=== PATIENT | male | born 1940 | race African-American/Black ===

== ENCOUNTER → 2017-10-21 | Outpatient (CLI) | payer MEDICARE ==
--- NOTE | 2017-10-21 22:10 | RADIOLOGY REPORT (SQ) ---
EXAM DESCRIPTION: CT ABD/PELVIS WITH IV ONLY COMPLETED DATE/TIME: 10/21/2017 7:18 pm REASON FOR STUDY: R10.30 LOWER ABDOMINAL PAIN, UNSPECIFIED R10.30 LOWER ABDOMINAL PAIN, UNSPECIFIED COMPARISON: None. TECHNIQUE: CT scan of the abdomen and pelvis performed using helical scanning technique with dynamic intravenous contrast injection. No oral contrast. Images reviewed with lung, soft tissue, and bone windows. Reconstructed coronal and sagittal MPR images reviewed. Delayed images for evaluation of the urinary system also acquired. All images stored on PACS. All CT scanners at this facility use dose modulation, iterative reconstruction, and/or weight based d osing when appropriate to reduce radiation dose to as low as reasonably achievable (ALARA). [facility]: Dose Right [facility]: CareDose [facility]: Dose Right [facility]: Teradose 4D [facility]: MoneyLion CONTRAST TYPE AND DOSE: contrast/concentration: Isovue 350.00 mg/ml; Total Contrast Delivered: 96.0 ml; Total Saline Delivered: 31.2 ml RENAL FUNCTION: Creatinine 1.1 RADIATION DOSE: CT Rad equipment meets quality standard of care and radiation dose reduction techniq ues were employed. CTDIvol: 7.9 - 11.2 mGy. DLP: 1202 mGy-cm.. LIMITATIONS: None. FINDINGS: LOWER CHEST: Mild chronic interstitial changes in the lung bases left more than right. LIVER: Small cyst in the right lobe. SPLEEN: Normal size. No focal lesions. PANCREAS: No masses. No significant calcifications. No adjacent inflammation or peripancreatic fluid collections. Pancreatic duct not dilated. GALLBLADDER: No identified stones by CT criteria. No inflammatory changes to suggest cholecystitis. ADRENAL GLANDS: No significant masses or asymmetry. RIGHT KIDNEY AND URETER: No solid masses. No significant calcifications. No hydronephrosis or hyd roureter. LEFT KIDNEY AND URETER: No solid masses. No significant calcifications. No hydronephrosis or hydr oureter. AORTA AND VESSELS: No aneurysm. No dissection. Renal arteries, SMA, celiac without stenosis. RETROPERITONEUM: No retroperitoneal adenopathy, hemorrhage or masses. BOWEL AND PERITONEAL CAVITY: Unobstructed bowel is seen in bilateral large inguinal hernias. No freeman l masses are seen. APPENDIX: Not identified. PELVIS: No mass. No free fluid. Normal bladder. ABDOMINAL WALL: Very large bilateral inguinal hernias contain unobstructed bowel that extends down in to the scrotum. BONES: Lumbar degenerative disc changes and spondylosis with mild scoliosis. OTHER: No other significant finding. IMPRESSION: 1. Mild chronic lung changes. 2 Small hepatic cyst. 3. Very large bilateral inguinal hernias containing unobstructed bowel. 4. Lumbar degenerative changes. TECHNICAL DOCUMENTATION: JOB ID: [id number] Quality ID # [id number]: Final reports with documentation of one or more dose reduction techniques (e.g., Au tomated exposure control, adjustment of the mA and/or kV according to patient size, use of iterative reconstruction technique) 2010 [employer]- All Rights Reserved Reading location - IP/workstation name: [email or web address]
== END ==
LOC: RAD 18:16
PROVIDERS: ATTEND Internal Medicine
DX: K40.20 Bilateral inguinal hernia, without obstruction or gangrene, not specified as recurrent (principal); R10.30 Lower abdominal pain, unspecified; K76.89 Other specified diseases of liver; M47.896 Other spondylosis, lumbar region
CPT/HCPCS: 74177; 82565

== ENCOUNTER 2018-05-20 17:36 | Inpatient (IN) | payer MEDICARE ==
[2018-05-20] MEDS ORDERED: NORMAL SALINE 1000 ML 1,000 ML IV PRN (18:29)
[2018-05-20 18:39] LABS: ABSOLUTE BASOPHILS # (AUTO) 0.1 10^3/uL (0.0-0.2); ABSOLUTE EOSINOPHILS # (AUTO) 0.3 10^3/uL (0.0-0.6); ABSOLUTE LYMPHOCYTES (AUTO) 1.1 10^3/uL (0.5-4.7); ABSOLUTE MONOCYTES (AUTO) 1.6 10^3/uL (0.1-1.4); ABSOLUTE NEUT (AUTO) 12.2 10^3/uL (1.7-8.2); BASOPHILS % (AUTO) 0.5 % (0-2); HEMATOCRIT 40.1 % (37.9-51.0); HEMOGLOBIN 13.2 g/dL (13.5-17.0); MEAN CORPUSCULAR HEMOGLOBIN 31.8 pg (27.0-33.4); MEAN CORPUSCULAR HGB CONC 32.9 g/dL (32.0-36.0); MEAN CORPUSCULAR VOLUME 97 fl (80-97); MONOCYTES % (AUTO) 10.4 % (3-13); PLATELET COUNT 264 10^3/uL (150-450); RED BLOOD COUNT 4.15 10^6/uL (4.35-5.55); RED CELL DISTRIBUTION WIDTH 12.9 % (11.5-14.0); SEGMENTED NEUTROPHILS % (AUTO) 80.1 % (42-78); TOTAL CELLS COUNTED % (AUTO) 100 %; WHITE BLOOD COUNT 15.2 10^3/uL (4.0-10.5)
[2018-05-20 19:05] LABS: ALANINE AMINOTRANSFERASE 38 U/L (21-72); ALBUMIN 3.7 g/dL (3.5-5.0); ALKALINE PHOSPHATASE 68 U/L (38-126); ANION GAP 12 (5-19); ASPARTATE AMINO TRANSFERASE 40 U/L (17-59); BILIRUBIN,DIRECT 0.4 mg/dL (0.0-0.4); BLOOD UREA NITROGEN 12 mg/dL (7-20); CALCIUM 9.5 mg/dL (8.4-10.2); CARBON DIOXIDE 29 mmol/L (22-30); CHLORIDE 103 mmol/L (98-107); GLUCOSE 114 mg/dL (75-110); POTASSIUM 3.9 mmol/L (3.6-5.0); SODIUM 144.1 mmol/L (137-145); TOTAL PROTEIN 7.4 g/dL (6.3-8.2)
[2018-05-20] MEDS: ACETAMINOPHEN 325 MG TABLET PO PRN (20:35)
--- NOTE | 2018-05-20 20:55 | RADIOLOGY REPORT (SQ) ---
EXAM DESCRIPTION: CT CHEST ANGIOGRAPHY WITHOUT THEN WITH IV CONTRAST COMPLETED DATE/TME: 05/20/2018 00:00 CLINICAL HISTORY: 77 years, Male, R/O PE COMPARISON: None. PROCEDURE: CLINICAL HISTORY: 77 years Male R/O PE COMPARISON: None. TECHNIQUE: Contiguous axial images were obtained through the chest during the infusion of IV contrast. Reformatted images obtained. MIP reformatted images obtained. This exam was performed according to our department optimization program which includes automated exposure control, adjustment of the mA and/or kv according to patient size and/or use of iterative reconstruction technique. FINDINGS: There are numerous pulmonary emboli in branches of the right and left pulmonary arteries involving numerous branches bilaterally. No main pulmonary arterial trunk saddle embolus. There is a small to moderate right pleural effusion. Bilateral atelectasis and consolidation involves the lungs. No pneumothorax is seen. Heart size is mildly enlarged. Size of the aorta is normal. IMPRESSION: Bilateral significant pulmonary emboli are seen. There is a right pleural effusion and bilateral consolidations.
[2018-05-20] MEDS ORDERED: HEPARIN SOD (PORCINE) 1,000 UNIT/ML 10 ML VIAL IV ONE (21:05)
--- NOTE | 2018-05-20 21:18 | PDOC H&P ---
History of Present Illness Admission Date/PCP: 05/20/18 17:36 JAYA ARAIZA MD History of Present Illness: BIENVENIDO GARZA is a 77 year old male, he was recently discharged from [facility] on 05/12/2018, he was admitted on oh 05/06 2018 at [facility] for the management of large bilateral inguinal hernia, she underwent robotic bilateral inguinal hernia repair. He was discharged home on oxygen he was found to have hypoxemia on discharge this was explained on the basis of long restrictive process from increased abdominal contents after surgery. Patient came to the office for post hospital follow-up discharge evaluation, in the office patient was acutely ill looking,he hardly could walk without assistance, the oxygen saturation was in the low 80s despite oxygen via nasal, at 4 L/min, the pulse rate was also elevated, I felt patient needed to be admitted for fu rther evaluation and management. A stat CTA chest was done, it demonstrated numerous pulmonary emboli in branches of the right and left pulmonary arteries involving numerous branches bilaterally Past Surgical History Past Surgical History: Reports: Other - Robotic bilateral inguinal hernia repair Social History Smoking Status: Never Smoker Family History Parental Family History Reviewed: Yes Children Family History Reviewed: Yes Sibling(s) Family History Reviewed.: Yes Medication/Allergy Home Medications: Timolol Maleate [Timoptic 0.5% Oph Soln 5 ml] 1 drop OU BID 05/20/18 Allergies/Adverse Reactions: No Known Allergies Allergy (Unverified 05/20/18 19:57) Review of Systems Constitutional: ABSENT: chills, fever(s), headache(s), weight gain, weight loss Eyes: ABSENT: visual disturbances Ears: ABSENT: hearing changes Cardiovascular: ABSENT: chest pain, dyspnea on exertion, edema, orthropnea, palpitations Respiratory: ABSENT: cough, hemoptysis Gastrointestinal: ABSENT: abdominal pain, constipation, diarrhea, hematemesis, hematochezia, nausea, vomiting Genitourinary: ABSENT: dysuria, hematuria Musculoskeletal: ABSENT: joint swelling Integumentary: ABSENT: rash, wounds Neurological: ABSENT: abnormal gait, abnormal speech, confusion, dizziness, focal weakness, syncope Psychiatric: ABSENT: anxiety, depression, homidical ideation, suicidal ideation Endocrine: ABSENT: cold intolerance, heat intolerance, menstrual abnormalities, polydipsia, polyuria Hematologic/Lymphatic: ABSENT: easy bleeding, easy bruising, lymphadenopathy Physical Exam Vital Signs: Temp Pulse Resp BP Pulse Ox 98.2 F 116 H 16 129/77 H 91 L 05/20/18 17:47 05/20/18 17:47 05/20/18 17:47 05/20/18 17:47 05/20/18 17:47 Intake & Output 05/19/18 05/20/18 05/21/18 06:59 06:59 06:59 Weight 85.6 kg General appearance: PRESENT: mild distress Head exam: PRESENT: atraumatic, normocephalic Eye exam: PRESENT: PERRLA Mouth exam: PRESENT: moist, tongue midline Neck exam: PRESENT: full ROM Respiratory exam: PRESENT: rhonchi Cardiovascular exam: PRESENT: RRR, +S1, +S2 GI/Abdominal exam: PRESENT: normal bowel sounds, soft Rectal exam: PRESENT: deferred Neurological exam: PRESENT: alert, CN II-XII grossly intact Skin exam: PRESENT: dry, intact, warm Results Laboratory Results: 05/20/18 18:15 05/20/18 18:15 05/20/18 05/20/18 18:15 18:15 WBC 15.2 H RBC 4.15 L Hgb 13.2 L Hct 40.1 MCV 97 MCH 31.8 MCHC 32.9 RDW 12.9 Plt Count 264 Seg Neutrophils % 80.1 H Lymphocytes % 7.0 L Monocytes % 10.4 Eosinophils % 2.0 Basophils % 0.5 Absolute Neutrophils 12.2 H Absolute Lymphocytes 1.1 Absolute Monocytes 1.6 H Absolute Eosinophils 0.3 Absolute Basophils 0.1 Sodium 144.1 Potassium 3.9 Chloride 103 Carbon Dioxide 29 Anion Gap 12 BUN 12 Creatinine 0.95 Est GFR ( Amer) > 60 Est GFR (Non-Af Amer) > 60 Glucose 114 H Calcium 9.5 Total Bilirubin 1.0 AST 40 ALT 38 Alkaline Phosphatase 68 Total Protein 7.4 Albumin 3.7 Impressions: Chest/Abdomen CTA 05/20/18 00:00 IMPRESSION: Bilateral significant pulmonary emboli are seen. There is a right pleural effusion and bilateral consolidations. Assessment & Plan - Diagnosis (1) Acute hypoxemic respiratory failure Is this a current diagnosis for this admission?: Yes Plan: Continue oxygen via nasal cannula (2) Bilateral pulmonary embolism Is this a current diagnosis for this admission?: Yes Plan: He has bilateral pulmonary embolism, start heparin infusion
[2018-05-20] MEDS ORDERED: HEPARIN SOD (PORCINE) 1,000 UNIT/ML 10 ML VIAL IV PRN (21:30)
[2018-05-20 21:47] LABS: ABSOLUTE EOSINOPHILS # (AUTO) 0.2 10^3/uL (0.0-0.6); ABSOLUTE MONOCYTES (AUTO) 1.5 10^3/uL (0.1-1.4); ABSOLUTE NEUT (AUTO) 11.9 10^3/uL (1.7-8.2); BASOPHILS % (AUTO) 0.3 % (0-2); EOSINOPHILS % (AUTO) 1.2 % (0-6); HEMATOCRIT 35.8 % (37.9-51.0); HEMOGLOBIN 11.8 g/dL (13.5-17.0); LYMPHOCYTES % (AUTO) 7.1 % (13-45); MEAN CORPUSCULAR HEMOGLOBIN 31.6 pg (27.0-33.4); MEAN CORPUSCULAR HGB CONC 33.1 g/dL (32.0-36.0); MEAN CORPUSCULAR VOLUME 96 fl (80-97); MONOCYTES % (AUTO) 9.9 % (3-13); PLATELET COUNT 243 10^3/uL (150-450); RED BLOOD COUNT 3.74 10^6/uL (4.35-5.55); RED CELL DISTRIBUTION WIDTH 12.6 % (11.5-14.0); SEGMENTED NEUTROPHILS % (AUTO) 81.5 % (42-78); TOTAL CELLS COUNTED % (AUTO) 100 %; WHITE BLOOD COUNT 14.7 10^3/uL (4.0-10.5)
[2018-05-20 22:18] LABS: ARTERIAL BLOOD BASE EXCESS 5.4 mmol/L; ARTERIAL BLOOD H2CO3 1.25 mmol/L (1.05-1.35); ARTERIAL BLOOD HCO3 29.5 mmol/L (20-24); ARTERIAL BLOOD O2 SATURATION 89.1 % (94-98); ARTERIAL BLOOD PCO2 41.5 mmHg (35-45); ARTERIAL BLOOD PH 7.47 (7.35-7.45); ARTERIAL BLOOD PO2 52.4 mmHg (80-100); ARTERIAL BLOOD TOTAL CO2 30.8 mmol/L (23-27)
[2018-05-20 22:20] LABS: ARTERIAL BLOOD FIO2 36%
[2018-05-20] MEDS: TIMOLOL MALEATE 0.5% OPH SOLN 5 ML OU SCH (22:36)
[2018-05-20 23:10] LABS: INTERNATIONAL RATION (INR) 1.31
[2018-05-20 23:11] LABS: PARTIAL THROMBOPLASTIN TIME 36.8 SEC (23.5-35.8)
[2018-05-21 00:28] LABS: D-DIMER > 20.00 ug/mL (0.00-0.50)
[2018-05-21] MEDS: HEPARIN SODIUM,PORCINE/D5W 25,000 UNIT/250 ML RTUINJ IV PRN ×2 (00:35→19:50)
[2018-05-21] MEDS: ACETAMINOPHEN 325 MG TABLET PO PRN (06:51)
[2018-05-21] MEDS: TIMOLOL MALEATE 0.5% OPH SOLN 5 ML OU SCH ×2 (10:10→17:25)
--- NOTE | 2018-05-21 12:20 | RADIOLOGY REPORT (SQ) ---
EXAM DESCRIPTION: VENOUS BILATERAL LOWER COMPLETED DATE/TIME: 05/21/2018 11:36 am REASON FOR STUDY: DVT COMPARISON: None. TECHNIQUE: Dynamic and static ellis scale and color images acquired of both lower extremity venous sy stems. Selected spectral images acquired with additional compression and augmentation maneuvers. Imag es stored on PACS. LIMITATIONS: Patient motion. FINDINGS: RIGHT LEG COMMON FEMORAL AND FEMORAL: Normal phasicity, compression and augmentation. No visualized echogenic m aterial on ellis scale. No defects on color images. POPLITEAL: Normal compression and augmentation. No visualized echogenic material on ellis scale. No de fects on color images. CALF VESSELS: Normal compression and augmentation. No visualized echogenic material on ellis scale. No defects on color image. GSV AND SSV: Normal compression. No visualized echogenic material on ellis scale. No defects on color images. ANY DEEP VENOUS INSUFFICIENCY: Not evaluated. ANY EVIDENCE OF POPLITEAL CYST: No. OTHER: No other significant finding. LEFT LEG COMMON FEMORAL AND FEMORAL: Normal phasicity, compression and augmentation. No visualized echogenic m aterial on ellis scale. No defects on color images. POPLITEAL: Normal compression and augmentation. No visualized echogenic material on ellis scale. No de fects on color images. CALF VESSELS: Occlusive thrombus posterior tibial vein. GSV AND SSV: Normal compression. No visualized echogenic material on ellis scale. No defects on color images. ANY DEEP VENOUS INSUFFICIENCY: Not evaluated. ANY EVIDENCE POPLITEAL CYST: No. OTHER: No other significant finding. IMPRESSION: Acute thrombosis left posterior tibial vein. TECHNICAL DOCUMENTATION: JOB ID: [id number] [employer]- All Rights Reserved Reading location - IP/workstation name: [email or web address]
--- NOTE | 2018-05-21 13:53 | PDOC PROGRESS REPORT ---
Subjective Progress Note for:: 05/21/18 Subjective:: Patient was admitted yesterday for the management of acute provocative severe bilateral pulmonary emboli with associated acute hypoxic respiratory failure. The venous Doppler of the lower segment was done, it demonstrated acute thrombosis of the left posterior tibial vein. Patient is requiring oxygen via a nonrebreather face mask Reason For Visit: HYPOXEMIA, SHORTNESS OF BREATH Physical Exam Vital Signs: Temp Pulse Resp BP Pulse Ox 97.4 F 98 17 136/68 H 90 L 05/21/18 08:12 05/21/18 08:12 05/21/18 08:12 05/21/18 08:12 05/21/18 12:36 Intake & Output 05/20/18 05/21/18 05/22/18 06:59 06:59 07:59 Intake Total 100 1109 Balance 100 1109 Weight 85.6 kg General appearance: PRESENT: mild distress Head exam: PRESENT: atraumatic, normocephalic Eye exam: PRESENT: conjunctiva pink, EOMI, PERRLA Ear exam: PRESENT: normal external ear exam Mouth exam: PRESENT: moist, tongue midline Neck exam: PRESENT: full ROM Respiratory exam: PRESENT: rhonchi Cardiovascular exam: PRESENT: RRR, +S1, +S2 Vascular exam: PRESENT: normal capillary refill GI/Abdominal exam: PRESENT: soft Rectal exam: PRESENT: deferred Neurological exam: PRESENT: alert, CN II-XII grossly intact Psychiatric exam: PRESENT: appropriate affect, normal mood Skin exam: PRESENT: dry, intact, warm Results Laboratory Results: 05/20/18 21:30 05/20/18 18:15 05/20/18 05/20/18 05/20/18 18:15 18:15 21:30 WBC 15.2 H 14.7 H RBC 4.15 L 3.74 L Hgb 13.2 L 11.8 L Hct 40.1 35.8 L MCV 97 96 MCH 31.8 31.6 MCHC 32.9 33.1 RDW 12.9 12.6 Plt Count 264 243 Seg Neutrophils % 80.1 H 81.5 H Lymphocytes % 7.0 L 7.1 L Monocytes % 10.4 9.9 Eosinophils % 2.0 1.2 Basophils % 0.5 0.3 Absolute Neutrophils 12.2 H 11.9 H Absolute Lymphocytes 1.1 1.0 Absolute Monocytes 1.6 H 1.5 H Absolute Eosinophils 0.3 0.2 Absolute Basophils 0.1 0.0 Carbonic Acid HCO3/H2CO3 Ratio ABG pH ABG pCO2 ABG pO2 ABG HCO3 ABG O2 Saturation ABG Base Excess FiO2 Sodium 144.1 Potassium 3.9 Chloride 103 Carbon Dioxide 29 Anion Gap 12 BUN 12 Creatinine 0.95 Est GFR ( Amer) > 60 Est GFR (Non-Af Amer) > 60 Glucose 114 H Calcium 9.5 Total Bilirubin 1.0 AST 40 ALT 38 Alkaline Phosphatase 68 Total Protein 7.4 Albumin 3.7 05/20/18 21:57 WBC RBC Hgb Hct MCV MCH MCHC RDW Plt Count Seg Neutrophils % Lymphocytes % Monocytes % Eosinophils % Basophils % Absolute Neutrophils Absolute Lymphocytes Absolute Monocytes Absolute Eosinophils Absolute Basophils Carbonic Acid 1.25 HCO3/H2CO3 Ratio 23:1 ABG pH 7.47 H ABG pCO2 41.5 ABG pO2 52.4 L ABG HCO3 29.5 H ABG O2 Saturation 89.1 L ABG Base Excess 5.4 FiO2 36% Sodium Potassium Chloride Carbon Dioxide Anion Gap BUN Creatinine Est GFR ( Amer) Est GFR (Non-Af Amer) Glucose Calcium Total Bilirubin AST ALT Alkaline Phosphatase Total Protein Albumin Impressions: Chest/Abdomen CTA 05/20/18 00:00 IMPRESSION: Bilateral significant pulmonary emboli are seen. There is a right pleural effusion and bilateral consolidations. Venous Doppler Study 05/21/18 00:00 IMPRESSION: Acute thrombosis left posterior tibial vein. Assessment & Plan - Diagnosis (1) Acute hypoxemic respiratory failure Is this a current diagnosis for this admission?: Yes Plan: Patient is requiring oxygen via a nonrebreather facemask, to maintain oxygen saturation above 90 (2) Bilateral pulmonary embolism Is this a current diagnosis for this admission?: Yes Plan: He has very heavy burden of clots in both pulmonary vasculature, patient will be treated with IV heparin for 5 days and then transition to p.o. Eliquis for 3-6 months, this is a provocative DVT/PE secondary to recent surgery that was done [facility] (3) Acute deep vein thrombosis of left tibial vein Is this a current diagnosis for this admission?: Yes
[2018-05-21] MEDS: NORMAL SALINE 1000 ML 1,000 ML IV PRN (17:25)
[2018-05-22 09:03] LABS: APPEARANCE,URINE SLIGHTLY-CLOUDY; BILIRUBIN,URINE NEGATIVE (NEGATIVE); COLOR,URINE YELLOW; GLUCOSE, URINE NEGATIVE (NEGATIVE); KETONES,URINE NEGATIVE (NEGATIVE); LEUKOCYTE ESTERASE,URINE NEGATIVE (NEGATIVE); NITRITE,URINE NEGATIVE (NEGATIVE); PROTEIN,URINE NEGATIVE (NEGATIVE); URINE SPECIFIC GRAVITY 1.016
[2018-05-22] MEDS: TIMOLOL MALEATE 0.5% OPH SOLN 5 ML OU SCH ×2 (09:56→19:42)
--- NOTE | 2018-05-22 12:12 | PDOC PROGRESS REPORT ---
Subjective Progress Note for:: 05/22/18 Subjective:: Patient was seen by the bedside, he still requires high volume oxygen via nonrebreather facemask to maintain oxygen saturation above 90. He was admitted for the management of severe bilateral pulmonary embolism with associated DVT of the left tibial vein Reason For Visit: HYPOXEMIA, SHORTNESS OF BREATH Physical Exam Vital Signs: Temp Pulse Resp BP Pulse Ox 97.3 F 95 17 144/62 H 90 L 05/22/18 08:23 05/22/18 08:23 05/22/18 08:23 05/22/18 08:23 05/22/18 08:23 Intake & Output 05/21/18 05/22/18 05/23/18 05:59 06:59 06:59 Intake Total 143 Balance 143 Weight General appearance: PRESENT: no acute distress Head exam: PRESENT: atraumatic, normocephalic Eye exam: PRESENT: PERRLA Mouth exam: PRESENT: moist, tongue midline Neck exam: PRESENT: full ROM Cardiovascular exam: PRESENT: RRR, +S1, +S2 Vascular exam: PRESENT: normal capillary refill GI/Abdominal exam: PRESENT: normal bowel sounds, soft Rectal exam: PRESENT: deferred Neurological exam: PRESENT: alert, awake, oriented to person, oriented to place, oriented to time, oriented to situation, CN II-XII grossly intact Psychiatric exam: PRESENT: appropriate affect, normal mood Skin exam: PRESENT: dry, intact, warm Results Laboratory Results: 05/20/18 21:30 05/20/18 18:15 05/21/18 05/22/18 14:39 08:20 Urine Color YELLOW Urine Appearance SLIGHTLY-CLOUDY Urine pH 7.0 Ur Specific [place] 1.016 Urine Protein NEGATIVE Urine Glucose (UA) NEGATIVE Urine Ketones NEGATIVE Urine Blood NEGATIVE Urine Nitrite NEGATIVE Ur Leukocyte Esterase NEGATIVE Urine WBC (Auto) 1 Urine RBC (Auto) 1 Stool Occult Blood NEGATIVE Impressions: Chest/Abdomen CTA 05/20/18 00:00 IMPRESSION: Bilateral significant pulmonary emboli are seen. There is a right pleural effusion and bilateral consolidations. Venous Doppler Study 05/21/18 00:00 IMPRESSION: Acute thrombosis left posterior tibial vein. Assessment & Plan - Diagnosis (1) Acute hypoxemic respiratory failure Is this a current diagnosis for this admission?: Yes Plan: Patient continues to require high volume oxygen via nonrebreather facemask, hopefully will prevent mechanical ventilation (2) Bilateral pulmonary embolism Is this a current diagnosis for this admission?: Yes Plan: Continue present line of treatment with IV heparin (3) Acute deep vein thrombosis of left tibial vein Is this a current diagnosis for this admission?: Yes
[2018-05-22 13:13] LABS: ABSOLUTE BASOPHILS # (AUTO) 0.1 10^3/uL (0.0-0.2); ABSOLUTE EOSINOPHILS # (AUTO) 0.3 10^3/uL (0.0-0.6); ABSOLUTE LYMPHOCYTES (AUTO) 1.2 10^3/uL (0.5-4.7); ABSOLUTE MONOCYTES (AUTO) 1.1 10^3/uL (0.1-1.4); ABSOLUTE NEUT (AUTO) 7.9 10^3/uL (1.7-8.2); BASOPHILS % (AUTO) 0.6 % (0-2); HEMATOCRIT 35.9 % (37.9-51.0); LYMPHOCYTES % (AUTO) 11.4 % (13-45); MEAN CORPUSCULAR HEMOGLOBIN 31.6 pg (27.0-33.4); MEAN CORPUSCULAR HGB CONC 33.4 g/dL (32.0-36.0); MEAN CORPUSCULAR VOLUME 95 fl (80-97); MONOCYTES % (AUTO) 10.5 % (3-13); PLATELET COUNT 248 10^3/uL (150-450); RED CELL DISTRIBUTION WIDTH 12.7 % (11.5-14.0); SEGMENTED NEUTROPHILS % (AUTO) 74.5 % (42-78); TOTAL CELLS COUNTED % (AUTO) 100 %; WHITE BLOOD COUNT 10.6 10^3/uL (4.0-10.5)
[2018-05-22 13:27] LABS: ALANINE AMINOTRANSFERASE 28 U/L (21-72); ALBUMIN 3.1 g/dL (3.5-5.0); ALKALINE PHOSPHATASE 60 U/L (38-126); ANION GAP 6 (5-19); ASPARTATE AMINO TRANSFERASE 40 U/L (17-59); BILIRUBIN,DIRECT 0.3 mg/dL (0.0-0.4); BILIRUBIN,TOTAL 0.8 mg/dL (0.2-1.3); BLOOD UREA NITROGEN 8 mg/dL (7-20); CALCIUM 8.7 mg/dL (8.4-10.2); CARBON DIOXIDE 31 mmol/L (22-30); CHLORIDE 104 mmol/L (98-107); GLUCOSE 108 mg/dL (75-110); POTASSIUM 3.4 mmol/L (3.6-5.0); SODIUM 141.1 mmol/L (137-145); TOTAL PROTEIN 6.8 g/dL (6.3-8.2)
--- NOTE | 2018-05-22 13:28 | RADIOLOGY REPORT (SQ) ---
EXAM DESCRIPTION: CHEST SINGLE VIEW COMPLETED DATE/TIME: 05/22/2018 12:23 pm REASON FOR STUDY: acute hypoxemic respiratory failure COMPARISON: None. EXAM PARAMETERS: NUMBER OF VIEWS: One view. TECHNIQUE: Single frontal radiographic view of the chest acquired. RADIATION DOSE: NA LIMITATIONS: None. FINDINGS: LUNGS AND PLEURA: Bibasilar infiltrates and effusions. MEDIASTINUM AND HILAR STRUCTURES: No masses. Contour normal. HEART AND VASCULAR STRUCTURES: Cardiomegaly. The pulmonary vasculature is normal. Aortic atheroscle rosis seen.BONES: No acute findings. HARDWARE: None in the chest. OTHER: Chest leads in place. IMPRESSION: Bibasilar infiltrates and effusions. Cardiomegaly. TECHNICAL DOCUMENTATION: JOB ID: [id number] 2010 [employer]- All Rights Reserved Reading location - IP/workstation name: [email or web address]
[2018-05-22] MEDS: POTASSIUM CHLORIDE 20 MEQ/15 ML UDCUP PO SCH (16:07)
[2018-05-22] MEDS: HEPARIN SODIUM,PORCINE/D5W 25,000 UNIT/250 ML RTUINJ IV PRN (19:57)
[2018-05-23] MEDS: NORMAL SALINE 1000 ML 1,000 ML IV PRN (03:21)
[2018-05-23] MEDS: POTASSIUM CHLORIDE 20 MEQ/15 ML UDCUP PO SCH (09:02)
[2018-05-23] MEDS: TIMOLOL MALEATE 0.5% OPH SOLN 5 ML OU SCH ×2 (09:03→17:50)
[2018-05-23 11:25] LABS: ABSOLUTE BASOPHILS # (AUTO) 0.1 10^3/uL (0.0-0.2); ABSOLUTE EOSINOPHILS # (AUTO) 0.1 10^3/uL (0.0-0.6); ABSOLUTE LYMPHOCYTES (AUTO) 0.9 10^3/uL (0.5-4.7); ABSOLUTE NEUT (AUTO) 7.6 10^3/uL (1.7-8.2); BASOPHILS % (AUTO) 0.6 % (0-2); EOSINOPHILS % (AUTO) 1.2 % (0-6); HEMATOCRIT 40.9 % (37.9-51.0); HEMOGLOBIN 13.7 g/dL (13.5-17.0); LYMPHOCYTES % (AUTO) 9.7 % (13-45); MEAN CORPUSCULAR HGB CONC 33.6 g/dL (32.0-36.0); MEAN CORPUSCULAR VOLUME 95 fl (80-97); MONOCYTES % (AUTO) 10.1 % (3-13); PLATELET COUNT 257 10^3/uL (150-450); RED BLOOD COUNT 4.29 10^6/uL (4.35-5.55); RED CELL DISTRIBUTION WIDTH 12.8 % (11.5-14.0); SEGMENTED NEUTROPHILS % (AUTO) 78.4 % (42-78); TOTAL CELLS COUNTED % (AUTO) 100 %; WHITE BLOOD COUNT 9.7 10^3/uL (4.0-10.5)
[2018-05-23 11:40] LABS: ALANINE AMINOTRANSFERASE 16 U/L (21-72); ALBUMIN 3.2 g/dL (3.5-5.0); ALKALINE PHOSPHATASE 56 U/L (38-126); ANION GAP 9 (5-19); ASPARTATE AMINO TRANSFERASE 32 U/L (17-59); BILIRUBIN,DIRECT 0.4 mg/dL (0.0-0.4); BILIRUBIN,TOTAL 0.9 mg/dL (0.2-1.3); BLOOD UREA NITROGEN 8 mg/dL (7-20); CALCIUM 9.2 mg/dL (8.4-10.2); CARBON DIOXIDE 27 mmol/L (22-30); CHLORIDE 104 mmol/L (98-107); GLUCOSE 115 mg/dL (75-110)
[2018-05-23 11:48] LABS: POTASSIUM 4.6 mmol/L (3.6-5.0)
[2018-05-23] MEDS: HEPARIN SODIUM,PORCINE/D5W 25,000 UNIT/250 ML RTUINJ IV PRN (17:23)
--- NOTE | 2018-05-23 21:18 | PDOC PROGRESS REPORT ---
Subjective Progress Note for:: 05/23/18 Subjective:: Patient was seen by the bedside today, the face color is returning, patient seems to be improving and getting better, family also acknowledges this Reason For Visit: HYPOXEMIA, SHORTNESS OF BREATH Physical Exam Vital Signs: Temp Pulse Resp BP Pulse Ox 98.7 F 105 H 24 H 128/66 H 95 05/23/18 15:32 05/23/18 15:32 05/23/18 17:46 05/23/18 15:32 05/23/18 15:32 Intake & Output 05/22/18 05/23/18 05/24/18 06:59 06:59 06:59 Intake Total 2103 991 Output Total 350 Balance 1753 991 Weight 87.4 kg General appearance: PRESENT: no acute distress Eye exam: PRESENT: PERRLA Respiratory exam: PRESENT: rhonchi Cardiovascular exam: PRESENT: +S1, +S2 GI/Abdominal exam: PRESENT: soft Neurological exam: PRESENT: alert Results Laboratory Results: 05/23/18 10:48 05/23/18 10:48 05/23/18 05/23/18 05/23/18 10:30 10:48 10:48 WBC 9.7 RBC 4.29 L Hgb 13.7 Hct 40.9 MCV 95 MCH 32.0 MCHC 33.6 RDW 12.8 Plt Count 257 Seg Neutrophils % 78.4 H Lymphocytes % 9.7 L Monocytes % 10.1 Eosinophils % 1.2 Basophils % 0.6 Absolute Neutrophils 7.6 Absolute Lymphocytes 0.9 Absolute Monocytes 1.0 Absolute Eosinophils 0.1 Absolute Basophils 0.1 Sodium 140.0 Potassium 4.6 D Chloride 104 Carbon Dioxide 27 Anion Gap 9 BUN 8 Creatinine 0.79 Est GFR ( Amer) > 60 Est GFR (Non-Af Amer) > 60 Glucose 115 H Calcium 9.2 Total Bilirubin 0.9 AST 32 ALT 16 L Alkaline Phosphatase 56 Total Protein 7.0 Albumin 3.2 L Stool Occult Blood NEGATIVE Impressions: Chest/Abdomen CTA 05/20/18 00:00 IMPRESSION: Bilateral significant pulmonary emboli are seen. There is a right pleural effusion and bilateral consolidations. Venous Doppler Study 05/21/18 00:00 IMPRESSION: Acute thrombosis left posterior tibial vein. Chest X-Ray 05/22/18 00:00 IMPRESSION: Bibasilar infiltrates and effusions. Cardiomegaly. Assessment & Plan - Diagnosis (1) Acute hypoxemic respiratory failure Is this a current diagnosis for this admission?: Yes Plan: Patient is now requiring oxygen via nasal cannula (2) Bilateral pulmonary embolism Is this a current diagnosis for this admission?: Yes Plan: Continue intravenous heparin (3) Acute deep vein thrombosis of left tibial vein Is this a current diagnosis for this admission?: Yes
[2018-05-24 06:54] LABS: ABSOLUTE BASOPHILS # (AUTO) 0.1 10^3/uL (0.0-0.2); ABSOLUTE EOSINOPHILS # (AUTO) 0.1 10^3/uL (0.0-0.6); ABSOLUTE LYMPHOCYTES (AUTO) 1.3 10^3/uL (0.5-4.7); ABSOLUTE NEUT (AUTO) 6.5 10^3/uL (1.7-8.2); BASOPHILS % (AUTO) 1.1 % (0-2); EOSINOPHILS % (AUTO) 1.4 % (0-6); HEMATOCRIT 36.1 % (37.9-51.0); HEMOGLOBIN 12.1 g/dL (13.5-17.0); LYMPHOCYTES % (AUTO) 14.1 % (13-45); MEAN CORPUSCULAR HEMOGLOBIN 31.7 pg (27.0-33.4); MEAN CORPUSCULAR HGB CONC 33.3 g/dL (32.0-36.0); MEAN CORPUSCULAR VOLUME 95 fl (80-97); MONOCYTES % (AUTO) 10.7 % (3-13); PLATELET COUNT 259 10^3/uL (150-450); RED CELL DISTRIBUTION WIDTH 12.9 % (11.5-14.0); SEGMENTED NEUTROPHILS % (AUTO) 72.7 % (42-78); TOTAL CELLS COUNTED % (AUTO) 100 %
[2018-05-24 07:21] LABS: ALANINE AMINOTRANSFERASE 37 U/L (21-72); ALBUMIN 2.9 g/dL (3.5-5.0); ALKALINE PHOSPHATASE 58 U/L (38-126); ANION GAP 6 (5-19); ASPARTATE AMINO TRANSFERASE 35 U/L (17-59); BILIRUBIN,DIRECT 0.2 mg/dL (0.0-0.4); BILIRUBIN,TOTAL 0.8 mg/dL (0.2-1.3); BLOOD UREA NITROGEN 9 mg/dL (7-20); CARBON DIOXIDE 30 mmol/L (22-30); CHLORIDE 104 mmol/L (98-107); GLUCOSE 92 mg/dL (75-110); POTASSIUM 4.3 mmol/L (3.6-5.0); SODIUM 140.1 mmol/L (137-145); TOTAL PROTEIN 6.6 g/dL (6.3-8.2)
[2018-05-24] MEDS: POTASSIUM CHLORIDE 20 MEQ/15 ML UDCUP PO SCH (09:39)
[2018-05-24] MEDS: TIMOLOL MALEATE 0.5% OPH SOLN 5 ML OU SCH ×2 (09:40→17:15)
[2018-05-24] MEDS: NORMAL SALINE 1000 ML 1,000 ML IV PRN (11:19)
[2018-05-24] MEDS: HEPARIN SODIUM,PORCINE/D5W 25,000 UNIT/250 ML RTUINJ IV PRN (15:23)
--- NOTE | 2018-05-24 19:39 | PDOC PROGRESS REPORT ---
Subjective Progress Note for:: 05/24/18 Subjective:: Patient was seen today by the bedside, he was seen by physical therapy today he was able to walk some meters Reason For Visit: HYPOXEMIA, SHORTNESS OF BREATH Physical Exam Vital Signs: Temp Pulse Resp BP Pulse Ox 97.5 F 89 24 H 125/72 93 05/24/18 15:24 05/24/18 19:00 05/24/18 15:24 05/24/18 15:24 05/24/18 15:24 Intake & Output 05/23/18 05/24/18 05/25/18 06:59 06:59 06:59 Intake Total 2103 991 1440 Output Total 350 Balance 1334 431 8442 Weight 87.4 kg 86.9 kg General appearance: PRESENT: no acute distress Eye exam: PRESENT: PERRLA Respiratory exam: PRESENT: clear to auscultation chaitanya Cardiovascular exam: PRESENT: +S1, +S2 GI/Abdominal exam: PRESENT: soft Neurological exam: PRESENT: alert Results Laboratory Results: 05/24/18 06:18 05/24/18 06:18 05/24/18 05/24/18 06:18 06:18 WBC 9.0 RBC 3.80 L Hgb 12.1 L Hct 36.1 L MCV 95 MCH 31.7 MCHC 33.3 RDW 12.9 Plt Count 259 Seg Neutrophils % 72.7 Lymphocytes % 14.1 Monocytes % 10.7 Eosinophils % 1.4 Basophils % 1.1 Absolute Neutrophils 6.5 Absolute Lymphocytes 1.3 Absolute Monocytes 1.0 Absolute Eosinophils 0.1 Absolute Basophils 0.1 Sodium 140.1 Potassium 4.3 Chloride 104 Carbon Dioxide 30 Anion Gap 6 BUN 9 Creatinine 0.81 Est GFR ( Amer) > 60 Est GFR (Non-Af Amer) > 60 Glucose 92 Calcium 9.0 Total Bilirubin 0.8 AST 35 ALT 37 Alkaline Phosphatase 58 Total Protein 6.6 Albumin 2.9 L Impressions: Chest/Abdomen CTA 05/20/18 00:00 IMPRESSION: Bilateral significant pulmonary emboli are seen. There is a right pleural effusion and bilateral consolidations. Venous Doppler Study 05/21/18 00:00 IMPRESSION: Acute thrombosis left posterior tibial vein. Chest X-Ray 05/22/18 00:00 IMPRESSION: Bibasilar infiltrates and effusions. Cardiomegaly. Assessment & Plan - Diagnosis (1) Acute hypoxemic respiratory failure Is this a current diagnosis for this admission?: Yes Plan: Patient continue to require oxygen via nasal cannula (2) Bilateral pulmonary embolism Is this a current diagnosis for this admission?: Yes Plan: Continue intravenous heparin (3) Acute deep vein thrombosis of left tibial vein Is this a current diagnosis for this admission?: Yes
[2018-05-25 08:50] LABS: HEMATOCRIT 35.3 % (37.9-51.0); HEMOGLOBIN 11.7 g/dL (13.5-17.0); MEAN CORPUSCULAR HEMOGLOBIN 31.5 pg (27.0-33.4); MEAN CORPUSCULAR HGB CONC 33.2 g/dL (32.0-36.0); MEAN CORPUSCULAR VOLUME 95 fl (80-97); PLATELET COUNT 263 10^3/uL (150-450); RED BLOOD COUNT 3.73 10^6/uL (4.35-5.55); RED CELL DISTRIBUTION WIDTH 12.7 % (11.5-14.0); WHITE BLOOD COUNT 6.8 10^3/uL (4.0-10.5)
[2018-05-25 08:55] LABS: ALANINE AMINOTRANSFERASE 40 U/L (21-72); ALBUMIN 2.8 g/dL (3.5-5.0); ALKALINE PHOSPHATASE 52 U/L (38-126); ASPARTATE AMINO TRANSFERASE 36 U/L (17-59); BILIRUBIN,DIRECT 0.2 mg/dL (0.0-0.4); BILIRUBIN,TOTAL 0.7 mg/dL (0.2-1.3); BLOOD UREA NITROGEN 9 mg/dL (7-20); CARBON DIOXIDE 33 mmol/L (22-30); CHLORIDE 102 mmol/L (98-107); GLUCOSE 96 mg/dL (75-110); POTASSIUM 3.9 mmol/L (3.6-5.0); TOTAL PROTEIN 6.4 g/dL (6.3-8.2)
[2018-05-25 09:00] LABS: ANION GAP 5 (5-19); SODIUM 139.5 mmol/L (137-145)
[2018-05-25 09:13] LABS: ABSOLUTE LYMPHOCYTES# (MANUAL) 0.7 10^3/uL (0.5-4.7); ABSOLUTE MONOCYTES # (MANUAL) 0.7 10^3/uL (0.1-1.4); ABSOLUTE NEUTROPHILS# (MANUAL) 5.3 10^3/uL (1.7-8.2); BASOPHILS % (MANUAL) 0 % (0-2); EOSINOPHILS % (MANUAL) 2 % (0-6); LYMPHOCYTES % (MANUAL) 10 % (13-45); MONOCYTES % (MANUAL) 10 % (3-13); PLATELET COMMENT ADEQUATE; POIKILOCYTOSIS SLIGHT; POLYCHROMASIA SLIGHT; SEGMENTED NEUTROPHILS % (MAN) 78 % (42-78); TEAR DROP CELLS SLIGHT; TOTAL CELLS COUNTED 100; TOXIC VACUOLATION PRESENT
[2018-05-25] MEDS: TIMOLOL MALEATE 0.5% OPH SOLN 5 ML OU SCH ×2 (09:37→17:42)
[2018-05-25] MEDS: POTASSIUM CHLORIDE 20 MEQ/15 ML UDCUP PO SCH (09:37)
--- NOTE | 2018-05-25 17:21 | PDOC PROGRESS REPORT ---
Subjective Progress Note for:: 05/25/18 Subjective:: Patient was seen by the bedside, he has no new complaints Reason For Visit: HYPOXEMIA, SHORTNESS OF BREATH Physical Exam Vital Signs: Temp Pulse Resp BP Pulse Ox 98.4 F 96 17 117/57 L 95 05/25/18 15:52 05/25/18 15:52 05/25/18 15:52 05/25/18 15:52 05/25/18 15:52 Intake & Output 05/24/18 05/25/18 05/26/18 06:59 06:59 06:59 Intake Total 991 1440 591 Balance 991 1440 591 Weight 86.9 kg 86.2 kg General appearance: PRESENT: no acute distress Eye exam: PRESENT: PERRLA Respiratory exam: PRESENT: clear to auscultation chaitanya Cardiovascular exam: PRESENT: +S1, +S2 GI/Abdominal exam: PRESENT: soft Neurological exam: PRESENT: alert Results Laboratory Results: 05/25/18 06:01 05/25/18 06:01 05/25/18 05/25/18 06:01 06:01 WBC 6.8 RBC 3.73 L Hgb 11.7 L Hct 35.3 L MCV 95 MCH 31.5 MCHC 33.2 RDW 12.7 Plt Count 263 Seg Neutrophils % Not Reportable Lymphocytes % Not Reportable Monocytes % Not Reportable Eosinophils % Not Reportable Basophils % Not Reportable Absolute Neutrophils Not Reportable Absolute Lymphocytes Not Reportable Absolute Monocytes Not Reportable Absolute Eosinophils Not Reportable Absolute Basophils Not Reportable Sodium 139.5 Potassium 3.9 Chloride 102 Carbon Dioxide 33 H Anion Gap 5 BUN 9 Creatinine 0.77 Est GFR ( Amer) > 60 Est GFR (Non-Af Amer) > 60 Glucose 96 Calcium 9.0 Total Bilirubin 0.7 AST 36 ALT 40 Alkaline Phosphatase 52 Total Protein 6.4 Albumin 2.8 L Impressions: Chest/Abdomen CTA 05/20/18 00:00 IMPRESSION: Bilateral significant pulmonary emboli are seen. There is a right pleural effusion and bilateral consolidations. Venous Doppler Study 05/21/18 00:00 IMPRESSION: Acute thrombosis left posterior tibial vein. Chest X-Ray 05/22/18 00:00 IMPRESSION: Bibasilar infiltrates and effusions. Cardiomegaly. Assessment & Plan - Diagnosis (1) Acute hypoxemic respiratory failure Is this a current diagnosis for this admission?: Yes Plan: Continue therapy with oxygen (2) Bilateral pulmonary embolism Is this a current diagnosis for this admission?: Yes Plan: The intravenous heparin will be discontinued, this will be transitioned to p.o. Eliquis (3) Acute deep vein thrombosis of left tibial vein Is this a current diagnosis for this admission?: Yes
[2018-05-25] MEDS: APIXABAN 5 MG TABLET PO SCH (21:23)
[2018-05-26 07:15] LABS: ABSOLUTE BASOPHILS # (AUTO) 0.1 10^3/uL (0.0-0.2); ABSOLUTE EOSINOPHILS # (AUTO) 0.2 10^3/uL (0.0-0.6); ABSOLUTE LYMPHOCYTES (AUTO) 0.9 10^3/uL (0.5-4.7); ABSOLUTE MONOCYTES (AUTO) 0.8 10^3/uL (0.1-1.4); BASOPHILS % (AUTO) 0.9 % (0-2); EOSINOPHILS % (AUTO) 2.3 % (0-6); HEMATOCRIT 36.5 % (37.9-51.0); HEMOGLOBIN 12.2 g/dL (13.5-17.0); LYMPHOCYTES % (AUTO) 13.2 % (13-45); MEAN CORPUSCULAR HEMOGLOBIN 31.6 pg (27.0-33.4); MEAN CORPUSCULAR HGB CONC 33.5 g/dL (32.0-36.0); MEAN CORPUSCULAR VOLUME 95 fl (80-97); MONOCYTES % (AUTO) 11.6 % (3-13); PLATELET COUNT 247 10^3/uL (150-450); RED BLOOD COUNT 3.86 10^6/uL (4.35-5.55); RED CELL DISTRIBUTION WIDTH 12.9 % (11.5-14.0); TOTAL CELLS COUNTED % (AUTO) 100 %
[2018-05-26 07:24] LABS: ALANINE AMINOTRANSFERASE 29 U/L (21-72); ALBUMIN 3.4 g/dL (3.5-5.0); ALKALINE PHOSPHATASE 58 U/L (38-126); ANION GAP 5 (5-19); ASPARTATE AMINO TRANSFERASE 35 U/L (17-59); BILIRUBIN,DIRECT 0.4 mg/dL (0.0-0.4); BILIRUBIN,TOTAL 0.8 mg/dL (0.2-1.3); BLOOD UREA NITROGEN 9 mg/dL (7-20); CALCIUM 9.3 mg/dL (8.4-10.2); CARBON DIOXIDE 36 mmol/L (22-30); CHLORIDE 99 mmol/L (98-107); GLUCOSE 92 mg/dL (75-110); POTASSIUM 3.9 mmol/L (3.6-5.0); SODIUM 139.5 mmol/L (137-145); TOTAL PROTEIN 7.3 g/dL (6.3-8.2)
[2018-05-26] MEDS: TIMOLOL MALEATE 0.5% OPH SOLN 5 ML OU SCH ×2 (10:26→17:58)
[2018-05-26] MEDS: APIXABAN 5 MG TABLET PO SCH ×2 (10:26→21:25)
--- NOTE | 2018-05-26 20:58 | PDOC PROGRESS REPORT ---
Subjective Progress Note for:: 05/26/18 Subjective:: Patient was seen by the bedside, he is very deconditioned the plan is to transfer to [facility] for rehabilitation Reason For Visit: HYPOXEMIA, SHORTNESS OF BREATH Physical Exam Vital Signs: Temp Pulse Resp BP Pulse Ox 98.3 F 91 16 118/56 L 100 05/26/18 20:23 05/26/18 20:23 05/26/18 20:23 05/26/18 20:23 05/26/18 20:23 Intake & Output 05/25/18 05/26/18 05/27/18 06:59 06:59 06:59 Intake Total 1440 591 940 Output Total 100 Balance 1440 491 940 Weight 86.2 kg 86.3 kg General appearance: PRESENT: no acute distress Eye exam: PRESENT: PERRLA Respiratory exam: PRESENT: clear to auscultation chaitanya Cardiovascular exam: PRESENT: +S1, +S2 GI/Abdominal exam: PRESENT: soft Results Laboratory Results: 05/26/18 06:27 05/26/18 06:24 05/26/18 05/26/18 06:24 06:27 WBC 7.0 RBC 3.86 L Hgb 12.2 L Hct 36.5 L MCV 95 MCH 31.6 MCHC 33.5 RDW 12.9 Plt Count 247 Seg Neutrophils % 72.0 Lymphocytes % 13.2 Monocytes % 11.6 Eosinophils % 2.3 Basophils % 0.9 Absolute Neutrophils 5.0 Absolute Lymphocytes 0.9 Absolute Monocytes 0.8 Absolute Eosinophils 0.2 Absolute Basophils 0.1 Sodium 139.5 Potassium 3.9 Chloride 99 Carbon Dioxide 36 H Anion Gap 5 BUN 9 Creatinine 0.79 Est GFR ( Amer) > 60 Est GFR (Non-Af Amer) > 60 Glucose 92 Calcium 9.3 Total Bilirubin 0.8 AST 35 ALT 29 Alkaline Phosphatase 58 Total Protein 7.3 Albumin 3.4 L Impressions: Chest/Abdomen CTA 05/20/18 00:00 IMPRESSION: Bilateral significant pulmonary emboli are seen. There is a right pleural effusion and bilateral consolidations. Venous Doppler Study 05/21/18 00:00 IMPRESSION: Acute thrombosis left posterior tibial vein. Chest X-Ray 05/22/18 00:00 IMPRESSION: Bibasilar infiltrates and effusions. Cardiomegaly. Assessment & Plan - Diagnosis (1) Acute hypoxemic respiratory failure Is this a current diagnosis for this admission?: Yes Plan: Continue therapy with oxygen (2) Bilateral pulmonary embolism Is this a current diagnosis for this admission?: Yes Plan: continue PO Eliquis (3) Acute deep vein thrombosis of left tibial vein Is this a current diagnosis for this admission?: Yes
--- NOTE | 2018-05-26 21:04 | PDOC TRANSFER SUMMARY ---
General - Admit/Disc Date/PCP Admission Date/Primary Care Provider: 05/20/18 17:36 JAYA ARAIZA MD Discharge Date: 05/27/18 - Discharge Diagnosis (1) Acute hypoxemic respiratory failure Is this a current diagnosis for this admission?: Yes (2) Bilateral pulmonary embolism Is this a current diagnosis for this admission?: Yes (3) Acute deep vein thrombosis of left tibial vein Is this a current diagnosis for this admission?: Yes - Additional Information Resuscitation Status: Full Code Home Medications: Timolol Maleate [Timoptic 0.5% Oph Soln 5 ml] 1 drop OU BID 05/20/18 Acetaminophen [Tylenol 325 mg Tablet] 650 mg PO Q4HP PRN tablet 05/26/18 Apixaban [Eliquis 5 mg Tablet] 5 mg PO Q12 tablet 05/26/18 History of Present Illness Admission Date/PCP: 05/20/18 17:36 JAYA ARAIZA MD History of Present Illness: BIENVENIDO GARZA is a 77 year old male, he was recently discharged from [facility] on 05/12/2018, he was admitted on [place] 05/06 2018 at [facility] for the management of large bilateral inguinal hernia, she underwent robotic bilateral inguinal hernia repair. He was discharged home on oxygen he was found to have hypoxemia on discharge this was explained on the basis of long restrictive process from increased abdominal contents after surgery. Patient came to the office for post hospital follow-up discharge evaluation, in the office patient was acutely ill looking,he hardly could walk without assistance, the oxygen saturation was in the low 80s despite oxygen via nasal, at 4 L/min, the pulse rate was also elevated, I felt patient needed to be admitted for further evaluation and management. A stat CTA chest was done, it demonstrated numerous pulmonary emboli in branches of the right and left pulmonary arteries involving numerous branches bilaterally Hospital Course Hospital Course: Patient was admitted for the management of acute hypoxic respiratory failure due to diffuse bilateral pulmonary embolism. Because of the severity of the venous thromboembolism he was treated with intravenous systemic coagulation, heparin. A venous Doppler was done that confirmed DVT of the left tibia vein The IV heparin was discontinued yesterday and was transitioned to p.o. Eliquis, he will take Eliquis for 6 months this was a provocative Venous thromboembolism.Patient to be transferred to retirement for short-term rehabilitation because he is extremely deconditioned with poor performance status was seen by physical therapy in the hospital and [facility] and PT was recommended Physical Exam Vital Signs: Temp Pulse Resp BP Pulse Ox 98.3 F 91 16 118/56 L 100 05/26/18 20:23 05/26/18 20:23 05/26/18 20:23 05/26/18 20:23 05/26/18 20:23 Intake & Output 05/25/18 05/26/18 05/27/18 06:59 06:59 06:59 Intake Total 1440 591 940 Output Total 100 Balance 1440 491 940 Weight 86.2 kg 86.3 kg General appearance: PRESENT: no acute distress Eye exam: PRESENT: PERRLA Respiratory exam: PRESENT: clear to auscultation chaitanya Cardiovascular exam: PRESENT: +S1, +S2 GI/Abdominal exam: PRESENT: soft Neurological exam: PRESENT: alert, CN II-XII grossly intact Results Laboratory Results: 05/26/18 06:27 05/26/18 06:24 05/26/18 05/26/18 06:24 06:27 WBC 7.0 RBC 3.86 L Hgb 12.2 L Hct 36.5 L MCV 95 MCH 31.6 MCHC 33.5 RDW 12.9 Plt Count 247 Seg Neutrophils % 72.0 Lymphocytes % 13.2 Monocytes % 11.6 Eosinophils % 2.3 Basophils % 0.9 Absolute Neutrophils 5.0 Absolute Lymphocytes 0.9 Absolute Monocytes 0.8 Absolute Eosinophils 0.2 Absolute Basophils 0.1 Sodium 139.5 Potassium 3.9 Chloride 99 Carbon Dioxide 36 H Anion Gap 5 BUN 9 Creatinine 0.79 Est GFR ( Amer) > 60 Est GFR (Non-Af Amer) > 60 Glucose 92 Calcium 9.3 Total Bilirubin 0.8 AST 35 ALT 29 Alkaline Phosphatase 58 Total Protein 7.3 Albumin 3.4 L Impressions: Chest/Abdomen CTA 05/20/18 00:00 IMPRESSION: Bilateral significant pulmonary emboli are seen. There is a right pleural effusion and bilateral consolidations. Venous Doppler Study 05/21/18 00:00 IMPRESSION: Acute thrombosis left posterior tibial vein. Chest X-Ray 05/22/18 00:00 IMPRESSION: Bibasilar infiltrates and effusions. Cardiomegaly. Qualifiers - * PATIENT BEING DISCHARGED WITH ANY OF THE FOLLOWING DIAGNOSIS: No
[2018-05-27] MEDS: APIXABAN 5 MG TABLET PO SCH (10:06)
[2018-05-27] MEDS: TIMOLOL MALEATE 0.5% OPH SOLN 5 ML OU SCH (10:06)
[2018-05-27 10:19] VITALS: BP 129/77
== END 2018-05-27 10:58 | disposition short-term general hospital (02) | DRG 175 ==
LOC: 5 17:36 → 3S 23:51
PROVIDERS: ADMIT Internal Medicine; ATTEND Internal Medicine
DX: I26.99 Other pulmonary embolism without acute cor pulmonale (principal); J96.01 Acute respiratory failure with hypoxia; I82.442 Acute embolism and thrombosis of left tibial vein; Z79.01 Long term (current) use of anticoagulants; Z98.890 Other specified postprocedural states
CPT/HCPCS: 36415; 36600; 71045; 71275; 80048; 80053; 80076; 81001; 82272; 82803; 85025; 85379; 85610; 85730; 93970; J1644; J3490; J7030

== ENCOUNTER → 2018-10-04 | Outpatient (CLI) | payer MEDICARE ==
--- NOTE | 2018-10-04 17:08 | RADIOLOGY REPORT (SQ) ---
EXAM DESCRIPTION: SHOULDER LEFT 2 OR MORE VIEWS COMPLETED DATE/TIME: 10/04/2018 5:01 pm REASON FOR STUDY: LOCALIZED SWELLING, MASS AND LUMP, LEFT UPPER LIMB R22.32 LOCALIZED SWELLING, MAS S AND LUMP, LEFT UPPER LIMB COMPARISON: None. NUMBER OF VIEWS: Three views. TECHNIQUE: Internal rotation, external rotation, and Y view images acquired of the left shoulder. LIMITATIONS: None. FINDINGS: MINERALIZATION: Normal. BONES: No acute fracture. No worrisome bone lesions. JOINTS: There are degenerative changes in the AC joint. VISUALIZED LUNGS AND RIBS: No pneumothorax. No rib fracture. SOFT TISSUES: No radiopaque foreign body. OTHER: No other significant finding. IMPRESSION: Degenerative changes in the AC joint. No other significant findings. TECHNICAL DOCUMENTATION: JOB ID: [id number] [employer]- All Rights Reserved Reading location - IP/workstation name: [email or web address]
--- NOTE | 2018-10-04 17:09 | RADIOLOGY REPORT (SQ) ---
EXAM DESCRIPTION: HAND LEFT 2 VIEWS COMPLETED DATE/TIME: 10/04/2018 5:01 pm REASON FOR STUDY: LOCALIZED SWELLING, MASS AND LUMP, LEFT UPPER LIMB R22.32 LOCALIZED SWELLING, MAS S AND LUMP, LEFT UPPER LIMB COMPARISON: None. EXAM PARAMETERS: NUMBER OF VIEWS: Three views. TECHNIQUE: AP, lateral and oblique radiographic images acquired of the left hand. LIMITATIONS: None. FINDINGS: MINERALIZATION: Normal. BONES: No acute fracture or dislocation. No worrisome bone lesions. JOINTS: No effusions. SOFT TISSUES: There is a small radiopaque foreign body along the ventral surface of the thumb. OTHER: No other significant finding. IMPRESSION: Small radiopaque foreign body overlying ventral surface of the distal phalanx of the hanna mb. TECHNICAL DOCUMENTATION: JOB ID: [id number] [employer]- All Rights Reserved Reading location - IP/workstation name: [email or web address]
--- NOTE | 2018-10-04 17:10 | RADIOLOGY REPORT (SQ) ---
EXAM DESCRIPTION: ELBOW LEFT AP/LAT COMPLETED DATE/TIME: 10/04/2018 5:01 pm REASON FOR STUDY: LOCALIZED SWELLING, MASS AND LUMP, LEFT UPPER LIMB R22.32 LOCALIZED SWELLING, MAS S AND LUMP, LEFT UPPER LIMB COMPARISON: None. NUMBER OF VIEWS: Four views. TECHNIQUE: AP, lateral, and both oblique radiographic images acquired of the left elbow. LIMITATIONS: None. FINDINGS: MINERALIZATION: Normal. BONES: No fracture. There is a prominent olecranon spur. JOINT: No effusion. SOFT TISSUES: No soft tissue swelling. No foreign body. OTHER: No other significant finding. IMPRESSION: Olecranon spur. No acute abnormality. TECHNICAL DOCUMENTATION: JOB ID: [id number] [employer]- All Rights Reserved Reading location - IP/workstation name: [email or web address]
== END ==
LOC: OD 16:21
PROVIDERS: ATTEND Internal Medicine
DX: M19.012 Primary osteoarthritis, left shoulder (principal); R22.32 Localized swelling, mass and lump, left upper limb; M77.8 Other enthesopathies, not elsewhere classified

== ENCOUNTER → 2018-11-03 | Outpatient (CLI) | payer MEDICARE ==
--- NOTE | 2018-11-03 18:38 | RADIOLOGY REPORT (SQ) ---
EXAM DESCRIPTION: VENOUS BILATERAL LOWER COMPLETED DATE/TIME: 11/03/2018 6:24 pm REASON FOR STUDY: BLE SWELLING R22.43 LOCALIZED SWELLING, MASS AND LUMP, LOWER LIMB, BILATE COMPARISON: 05/21/2018 TECHNIQUE: Dynamic and static ellis scale and color images acquired of both lower extremity venous sy stems. Selected spectral images acquired with additional compression and augmentation maneuvers. Imag es stored on PACS. LIMITATIONS: Could not visualize peroneal veins. FINDINGS: RIGHT LEG COMMON FEMORAL AND FEMORAL: Normal phasicity, compression and augmentation. No visualized echogenic m aterial on ellis scale. No defects on color images. POPLITEAL: Normal compression and augmentation. No visualized echogenic material on ellis scale. No de fects on color images. CALF VESSELS: Could not visualize peroneal vein. Normal compression and augmentation. No visualized echogenic material on ellis scale. No defects on color image. GSV AND SSV: Normal compression. No visualized echogenic material on ellis scale. No defects on color images. ANY DEEP VENOUS INSUFFICIENCY: Not evaluated. ANY EVIDENCE OF POPLITEAL CYST: No. OTHER: No other significant finding. LEFT LEG COMMON FEMORAL AND FEMORAL: Normal phasicity, compression and augmentation. No visualized echogenic m aterial on ellis scale. No defects on color images. POPLITEAL: Normal compression and augmentation. No visualized echogenic material on ellis scale. No de fects on color images. CALF VESSELS: Could not visualize peroneal vein. Normal compression and augmentation. No visualized echogenic material on ellis scale. No defects on color images. GSV AND SSV: Normal compression. No visualized echogenic material on ellis scale. No defects on color images. ANY DEEP VENOUS INSUFFICIENCY: Not evaluated. ANY EVIDENCE POPLITEAL CYST: No. OTHER: No other significant finding. IMPRESSION: NO EVIDENCE DVT IN EITHER LEG. TECHNICAL DOCUMENTATION: JOB ID: [id number] 2010 [employer]- All Rights Reserved Reading location - IP/workstation name: [email or web address]
== END ==
LOC: SP 17:20
PROVIDERS: ATTEND Internal Medicine
DX: R22.43 Localized swelling, mass and lump, lower limb, bilateral (principal)
CPT/HCPCS: 93970